=== PATIENT | female | born 1970 | race Caucasian/White ===

== ENCOUNTER → 2017-07-08 | Outpatient (CLI) | payer BC ==
[2015-07-08 23:20] VITALS: BP 130/89
[~2017-07-08] MED LIST: ACET325T9 PO; OTHER; PSEU30TA PO
[2017-07-09 04:09] LABS: ESTRADIOL LEVEL 64.7 pg/mL (.); PROGESTERONE 6.4 ng/mL (.); TESTOSTERONE TOTAL 10 ng/dL (8-48)
[2017-07-11 09:14] LABS: DHEA 125 ng/dL (31-701)
== END | disposition home or self-care (01) ==
LOC: LAB 11:27
PROVIDERS: ATTEND General Practice
DX: E34.8 Other specified endocrine disorders (principal)
CPT/HCPCS: 36415; 82626; 82670; 82679; 84144; 84403

== ENCOUNTER 2018-12-13 05:20 | Emergency (ER) | payer BC ==
[~2018-12-13] VITALS: Ht 149.9 cm; Wt 52.2 kg
--- NOTE | 2018-12-13 05:25 | ED.ADGEN ---
Past History Past Medical History: No Pertinent History, Constipation, GERD, IBS, Other Past Surgical History: No Surgical History, Other Smoking: Non-smoker Alcohol Use: None Drug Use: None Adult General Chief Complaint Chief Complaint "I woke up out of a sound sleep... With severe left flank and lower abdomen pain... It feels like someone stuck a needle or arrow in my back that runs clear down into my groin on the left... ".. ".. It hurts so bad .. I vomited.. I want to vomit..now even... .".," this is almost like my gall bladder pain... " HPI HPI Patient is a 48 year old FEMALE who presents with above hx and complaints nausea, vomiting, severe abdomen and Lt. flank pain. Patient denies history of kidney stones but her sister has had multiple stones nephew has had renal stones dad has had multiple renal stones and grandfather has had multiple kidney stones. Patient denies any intake bad food. Patient denies any diarrhea. She does have a history of IBS and GERD. Patient denies any history of ovarian cyst. Mother has a history of ulcerative or nonspecific colitis. No history of trauma. No history of travel. No history of immunosuppression. Patient does have a history of constipation. Patient states she did have a normal stool yesterday. Review of Systems Review of Systems Constitutional: Denies fever or chills [] Eyes: Denies change in visual acuity, redness, or eye pain [] HENT: Denies nasal congestion or sore throat [] Respiratory: Denies cough or shortness of breath [] Cardiovascular: No additional information not addressed in HPI [] GI: Complaints of left flank abdominal pain, nausea, vomiting, . : Denies dysuria or hematuria [] Musculoskeletal: Complains of left flank back pain Integument: Denies rash or skin lesions [] Neurologic: Denies headache, focal weakness or sensory changes [] Endocrine: Denies polyuria or polydipsia [] All other systems were reviewed and found to be within normal limits, except as documented in this note. Family History Family History Multiple family members with kidney stones Current Medications Current Medications Current Medications Medications (Trade) Dose Ordered Sig/Moises Start Time Stop Time Status Last Admin Dose Admin Famotidine (Pepcid Vial) 20 mg 1X ONCE 12/13/18 06:00 12/13/18 06:01 DC 12/13/18 06:01 20 MG Ketorolac Tromethamine (Toradol 30mg Vial) 30 mg 1X ONCE 12/13/18 06:00 12/13/18 06:01 DC 12/13/18 06:01 30 MG Lactated Ringer's 1,000 ml @ 1,000 mls/hr Q1H 12/13/18 06:00 12/13/18 06:59 DC 12/13/18 06:02 1,000 MLS/HR Levofloxacin (Levaquin) 500 mg 1X ONCE 12/13/18 07:00 12/13/18 07:01 DC 12/13/18 06:53 500 MG Magnesium Hydroxide (Milk Of Magnesia) 2,400 mg 1X ONCE 12/13/18 06:00 12/13/18 06:01 DC 12/13/18 06:01 2,400 MG Morphine Sulfate (Morphine 10mg Syringe) 10 mg 1X ONCE 12/13/18 06:00 12/13/18 06:01 DC 12/13/18 06:01 10 MG Ondansetron HCl (Zofran) 8 mg 1X ONCE 12/13/18 06:00 12/13/18 06:01 DC 12/13/18 06:01 8 MG Tamsulosin HCl (Flomax) 0.4 mg 1X ONCE 12/13/18 08:50 12/13/18 08:39 DC 12/13/18 08:30 0.4 MG See nursing for home medications Allergies Allergies Allergies Coded Allergies Type Severity Reaction Last Updated Verified Penicillins Allergy Intermediate Hives 07/08/15 Yes Sulfa (Sulfonamide Antibiotics) Allergy Intermediate Itching 07/08/15 Yes codeine Adverse Reaction Mild Nausea 07/08/15 Yes Physical Exam Physical Exam Constitutional: in acute distress, non-toxic appearance. [] HENT: Normocephalic, atraumatic, bilateral external ears normal, oropharynx moist, no oral exudates, nose normal. [] Eyes: PERRLA, EOMI, conjunctiva normal, no discharge. [] Neck: Normal range of motion, no tenderness, supple, no stridor. [] Cardiovascular:Heart rate regular rhythm, no murmur [] Lungs & Thorax: Bilateral breath sounds equal at apex on auscultation [] Abdomen: Bowel sounds decreased, soft, left mid abdomen and left flank tenderness, marked tenderness on percussion of left flank ,no masses, no pulsatile masses. [] Declines pelvic exam at this time. Declines rectal exam at this time. Mild distention. Old surgery scars-cholecystectomy. Skin: Warm, diaphoretic,, no erythema, no rash. [] Back: No tenderness, left flank CVA tenderness. [] Extremities: No tenderness, no cyanosis, no clubbing, ROM intact, no edema. [] No psoas sign. Neurologic: Alert and oriented X 3, normal motor function, normal sensory function, no focal deficits noted. [] Psychologic: Affect anxious, judgement normal, mood normal. [] Current Patient Data Vital Signs Vital Signs Date Time Temp Pulse Resp B/P (MAP) Pulse Ox O2 Delivery O2 Flow Rate FiO2 12/13/18 06:34 69 18 139/82 (101) 98 Room Air 12/13/18 05:36 97.3 Lab Results Laboratory Tests Test 12/13/18 05:25 12/13/18 06:00 Urine Collection Type Unknown Urine Color Yellow Urine Clarity Clear Urine pH 7.0 Urine Specific [place] 1.020 Urine Protein Neg (NEG-TRACE) Urine Glucose (UA) Neg mg/dL (NEG) Urine Ketones (Stick) Trace mg/dL (NEG) Urine Blood Mod (NEG) Urine Nitrite Neg (NEG) Urine Bilirubin Neg (NEG) Urine Urobilinogen Dipstick 1 mg/dL (0.2 mg/dL) Urine Leukocyte Esterase Neg (NEG) Urine RBC 11-20 /HPF (0-2) Urine WBC 1-4 /HPF (0-4) Urine Squamous Epithelial Cells Occ /LPF Urine Transitional Epithelial Cells Occ /LPF Urine Amorphous Sediment Present /HPF Urine Bacteria Few /HPF (0-FEW) Urine Mucus Slight /LPF Urine Opiates Screen Neg (NEG) Urine Methadone Screen Neg (NEG) Urine Barbiturates Neg (NEG) Urine Phencyclidine Screen Neg (NEG) Urine Amphetamine/Methamphetamine Neg (NEG) Urine Benzodiazepines Screen Neg (NEG) Urine Cocaine Screen Neg (NEG) Urine Cannabinoids Screen Neg (NEG) Urine Ethyl Alcohol Neg (NEG) White Blood Count 14.4 x10^3/uL (4.0-11.0) H Red Blood Count 4.46 x10^6/uL (3.50-5.40) Hemoglobin 13.9 g/dL (12.0-15.5) Hematocrit 42.3 % (36.0-47.0) Mean Corpuscular Volume 95 fL (79-100) Mean Corpuscular Hemoglobin 31 pg (25-35) Mean Corpuscular Hemoglobin Concent 33 g/dL (31-37) Red Cell Distribution Width 12.6 % (11.5-14.5) Platelet Count 252 x10^3/uL (140-400) Neutrophils (%) (Auto) 80 % (31-73) H Lymphocytes (%) (Auto) 14 % (24-48) L Monocytes (%) (Auto) 5 % (0-9) Eosinophils (%) (Auto) 1 % (0-3) Basophils (%) (Auto) 0 % (0-3) Neutrophils # (Auto) 11.5 x10^3uL (1.8-7.7) H Lymphocytes # (Auto) 2.1 x10^3/uL (1.0-4.8) Monocytes # (Auto) 0.6 x10^3/uL (0.0-1.1) Eosinophils # (Auto) 0.2 x10^3/uL (0.0-0.7) Basophils # (Auto) 0.0 x10^3/uL (0.0-0.2) Prothrombin Time 9.5 SEC (9.4-11.4) Prothrombin Time INR 0.9 (0.9-1.1) Activated Partial Thromboplast Time 23 SEC (23-33) Sodium Level 141 mmol/L (136-145) Potassium Level 3.4 mmol/L (3.5-5.1) L Chloride Level 106 mmol/L (98-107) Carbon Dioxide Level 22 mmol/L (21-32) Anion Gap 13 (6-14) Blood Urea Nitrogen 17 mg/dL (7-20) Creatinine 1.1 mg/dL (0.6-1.0) H Estimated GFR (Cockcroft-Gault) 52.6 Glucose Level 158 mg/dL (70-99) H Calcium Level 8.4 mg/dL (8.5-10.1) L Total Bilirubin 0.4 mg/dL (0.2-1.0) Direct Bilirubin 0.1 mg/dL (0.0-0.2) Aspartate Amino Transferase (AST) 15 U/L (15-37) Alanine Aminotransferase (ALT) 14 U/L (14-59) Alkaline Phosphatase 62 U/L (46-116) Total Protein 6.3 g/dL (6.4-8.2) L Albumin 3.4 g/dL (3.4-5.0) Amylase Level 38 U/L (25-115) Lipase 100 U/L (73-393) EKG EKG [] Radiology/Procedures Radiology/[place] [address] IMAGING REPORT Signed PATIENT: RENETTA FATIMA ACCOUNT: [id number] : 1970 LOCATION: ER AGE: 48 SEX: F EXAM STATUS: REG ER ORD. PHYSICIAN: WHIT GILES MD REASON: ABDOMEN PAIN PROCEDURE: ACUTE ABDOMEN SERIES ACUTE ABDOMEN SERIES INDICATION: Abdominal pain. COMPARISON STUDY: None. FINDINGS: Lungs: Normal lung volume. No pulmonary mass or consolidation. The tracheobronchial tree and hilar structures are normal. Pleura: No pleural effusion or pneumothorax. Heart and Mediastinum: The cardiomediastinal silhouette is normal. The great vessels of the thorax are normal. Abdomen: Nonobstructive bowel gas pattern. No free air. Moderate colonic stool. Bones and Soft Tissues: The bones and soft tissues are within normal limits. IMPRESSION: Nonobstructive bowel gas pattern. Moderate colonic stool. No focal airspace disease. Electronically signed by: Marybeth Andersen MD (12/13/2018 7:57 AM) [facility] [place] DICTATED AND SIGNED BY: MARYBETH ANDERSEN MD DATE: 12/13/18 0757 CC: DENVER HUNTER DO; WHIT GILES MD ~ [] IMAGING REPORT Signed PATIENT: RENETTA FATIMA ACCOUNT: [id number] : 1970 LOCATION: ER AGE: 48 SEX: F EXAM STATUS: REG ER ORD. PHYSICIAN: WHIT GILES MD REASON: Lt. lower abd. and flank pain, hematuria, PROCEDURE: CT ABDOMEN PELVIS WO CONTRAST CT ABDOMEN PELVIS WO CONTRAST INDICATION: Left abdominal and flank pain, hematuria EXAM: Noncontrast CT of the abdomen and pelvis. Coronal and sagittal reformatted images were performed. PQRS compliance statement: One or more of the following individualized dose reduction techniques were utilized for this examination: 1. Automated exposure control 2. Adjustment of the mA and/or kV according to patient size 3. Use of iterative reconstruction technique COMPARISON: None FINDINGS: No free air, free fluid, or fluid collection. Lower chest: The visualized lower lungs are aerated. No pleural or pericardial effusion. ABDOMEN: Liver: The noncontrast liver is homogeneous in attenuation. Gallbladder and biliary: Cholecystectomy. Mildly prominent common bile duct, likely due to postcholecystectomy state. Spleen: Normal spleen. Pancreas: The noncontrast pancreas is homogeneous in attenuation without peripancreatic inflammatory changes. Adrenal glands: Normal adrenal glands. Kidneys and ureters: Mild left hydroureteronephrosis. There are 2 small calcifications along the course of the left distal ureter measuring 5 x 4 mm and 5 x 2 mm. Several additional bilateral punctate nonobstructive renal calculi measuring 1 to 3 mm. GI tract: The stomach is decompressed and poorly evaluated. Normal caliber small bowel and colon. Vascular structures: Normal caliber abdominal aorta. Lymph nodes: No lymphadenopathy in the abdomen or pelvis. PELVIS: Genitourinary system: Bladder is decompressed. Uterus is present. SKELETAL STRUCTURES AND SOFT TISSUES: No fracture or destructive lesion in the visualized skeleton. IMPRESSION: Mild left hydroureteronephrosis. There are 2 small calcifications along the course of the left distal ureter, measuring 5 x 4 mm and 5 x 2 mm. Likely one or possibly both of these calculi are within the ureter, although it is difficult to determine as the ureter is not well visualized in this region and there are numerous pelvic phleboliths. There are multiple additional punctate nonobstructive bilateral renal calculi measuring 1 to 3 mm. Electronically signed by: Marybeth Andersen MD (12/13/2018 7:28 AM) [facility] DICTATED AND SIGNED BY: MARYBETH ANDERSEN MD DATE: 12/13/18 0728 CC: DENVER HUNTER DO; WHIT GILES MD ~ Course & Med Decision Making Course & Med Decision Making Pertinent Labs and Imaging studies reviewed. (See chart for details) Patient to push fluids. Patient to save stone if passed. Patient take Levaquin 500 mg daily for 5 days. Patient to take Zofran as needed 8 mg up 4 times a day for nausea and vomiting. Patient may take Tamsulosin 0.4 mg daily till passage of stone.. Patient warned that this drug may cause dizziness and hypotension. Patient to follow up urine cultures. Patient to follow-up primary care. Patient follow-up urology. Patient return of any concerns. Recommend following at [facility] if unable to pass stone. She given a list of urologist. Recommended patient get a urologist since multiple family members have had recurrent stones and is likely she may end up with the same problem. [] Final Impression Final Impression 1. Left flank and mid abdomen pain 2. Nausea and vomiting 3. Leukocytosis 14.9 4. Elevated glucose 158 5. Elevated creatinine 1.1 6. Hematuria 7. Kidney stones- Lt. with mild hydronephrosis 8. UTI [] Dragon Disclaimer Dragon Disclaimer This electronic medical record was generated, in whole or in part, using a voice recognition dictation system. Dragon Disclaimer This chart was dictated in whole or in part using Voice Recognition software in a busy, high-work load, and often noisy Emergency Department environment. It may contain unintended and wholly unrecognized errors or omissions. Dragon Disclaimer This chart was dictated in whole or in part using Voice Recognition software in a busy, high-work load, and often noisy Emergency Department environment. It may contain unintended and wholly unrecognized errors or omissions. Dragon Disclaimer This chart was dictated in whole or in part using Voice Recognition software in a busy, high-work load, and often noisy Emergency Department environment. It may contain unintended and wholly unrecognized errors or omissions. WHIT GILES MD Dec 13, 2018 05:25
[2018-12-13] MEDS ORDERED: MORPHINE SULFATE 10 MG/ML SYRINGE. SQ ONE (06:00)
[2018-12-13] MEDS ORDERED: MAGNESIUM HYDROXIDE 2,400 MG/30 ML ORAL.SUSP. PO ONE (06:00)
[2018-12-13] MEDS ORDERED: FAMOTIDINE 20 MG/2 ML VIAL IVP ONE (06:00)
[2018-12-13] MEDS ORDERED: KETOROLAC 30 MG/ML VIAL. IVP ONE (06:00)
[2018-12-13] MEDS ORDERED: ONDANSETRON PF 4 MG/2 ML VIAL. IVP ONE (06:00)
[2018-12-13] MEDS ORDERED: IV RINGERS SOLUTION,LACTATED 1,000 ML IV SCH (06:00)
[2018-12-13 06:18] LABS: BARBITURATES NEG (NEG); BENZODIAZEPINES NEG (NEG); CANNABINOIDS NEG (NEG); COCAINE NEG (NEG); METHADONE NEG (NEG); OPIATES NEG (NEG); PHENCYCLIDINE NEG (NEG)
[2018-12-13 06:21] LABS: BASO % 0 % (0-3); EOS # 0.2 x10^3/uL (0.0-0.7); EOS % 1 % (0-3); HEMATOCRIT 42.3 % (36.0-47.0); HEMOGLOBIN 13.9 g/dL (12.0-15.5); LYMPH # 2.1 x10^3/uL (1.0-4.8); LYMPH % 14 % (24-48); MEAN CORPUSCULAR HEMOGLOBIN 31 pg (25-35); MEAN CORPUSCULAR HGB CONC 33 g/dL (31-37); MEAN CORPUSCULAR VOLUME 95 fL (79-100); MONO # 0.6 x10^3/uL (0.0-1.1); MONO % 5 % (0-9); NEUT # 11.5 x10^3uL (1.8-7.7); NEUT % 80 % (31-73); PLATELET COUNT 252 x10^3/uL (140-400); RED BLOOD COUNT 4.46 x10^6/uL (3.50-5.40); RED CELL DISTRIBUTION WIDTH 12.6 % (11.5-14.5); WHITE BLOOD COUNT 14.4 x10^3/uL (4.0-11.0)
[2018-12-13 06:22] LABS: AMPHETAMINE/METHAMPHETAMINE NEG (NEG)
[2018-12-13 06:25] LABS: BILIRUBIN,URINE NEG (NEG); CLARITY,URINE CLEAR; COLOR,URINE YELLOW; GLUCOSE,URINE NEG (NEG)
[2018-12-13 06:26] LABS: AMORPHOUS SEDIMENT,UR PRESENT /HPF; BACTERIA,URINE FEW /HPF (0-FEW); NITRITE,URINE NEG (NEG); SQUAMOUS EPITHELIAL CELL,UR OCC /LPF; UROBILINOGEN,URINE 1 mg/dL (0.2 mg/dL)
[2018-12-13 06:33] LABS: ALBUMIN 3.4 g/dL (3.4-5.0); CALCIUM 8.4 mg/dL (8.5-10.1); CREATININE 1.1 mg/dL (0.6-1.0); DIRECT BILIRUBIN 0.1 mg/dL (0.0-0.2); GFR 52.6; POTASSIUM 3.4 mmol/L (3.5-5.1); TOTAL BILIRUBIN 0.4 mg/dL (0.2-1.0); TOTAL PROTEIN 6.3 g/dL (6.4-8.2)
[2018-12-13] MEDS ORDERED: levoFLOXacin 500 MG TABLET PO ONE (07:00)
--- NOTE | 2018-12-13 07:31 | RAD ---
CT ABDOMEN PELVIS WO CONTRAST INDICATION: Left abdominal and flank pain, hematuria EXAM: Noncontrast CT of the abdomen and pelvis. Coronal and sagittal reformatted images were performed. PQRS compliance statement: One or more of the following individualized dose reduction techniques were utilized for this examination: 1. Automated exposure control 2. Adjustment of the mA and/or kV according to patient size 3. Use of iterative reconstruction technique COMPARISON: None FINDINGS: No free air, free fluid, or fluid collection. Lower chest: The visualized lower lungs are aerated. No pleural or pericardial effusion. ABDOMEN: Liver: The noncontrast liver is homogeneous in attenuation. Gallbladder and biliary: Cholecystectomy. Mildly prominent common bile duct, likely due to postcholecystectomy state. Spleen: Normal spleen. Pancreas: The noncontrast pancreas is homogeneous in attenuation without peripancreatic inflammatory changes. Adrenal glands: Normal adrenal glands. Kidneys and ureters: Mild left hydroureteronephrosis. There are 2 small calcifications along the course of the left distal ureter measuring 5 x 4 mm and 5 x 2 mm. Several additional bilateral punctate nonobstructive renal calculi measuring 1 to 3 mm. GI tract: The stomach is decompressed and poorly evaluated. Normal caliber small bowel and colon. Vascular structures: Normal caliber abdominal aorta. Lymph nodes: No lymphadenopathy in the abdomen or pelvis. PELVIS: Genitourinary system: Bladder is decompressed. Uterus is present. SKELETAL STRUCTURES AND SOFT TISSUES: No fracture or destructive lesion in the visualized skeleton. IMPRESSION: Mild left hydroureteronephrosis. There are 2 small calcifications along the course of the left distal ureter, measuring 5 x 4 mm and 5 x 2 mm. Likely one or possibly both of these calculi are within the ureter, although it is difficult to determine as the ureter is not well visualized in this region and there are numerous pelvic phleboliths. There are multiple additional punctate nonobstructive bilateral renal calculi measuring 1 to 3 mm. Electronically signed by: Wilfrid Andersen MD (12/13/2018 7:28 AM) [facility]
--- NOTE | 2018-12-13 08:00 | RAD ---
ACUTE ABDOMEN SERIES INDICATION: Abdominal pain. COMPARISON STUDY: None. FINDINGS: Lungs: Normal lung volume. No pulmonary mass or consolidation. The tracheobronchial tree and hilar structures are normal. Pleura: No pleural effusion or pneumothorax. Heart and Mediastinum: The cardiomediastinal silhouette is normal. The great vessels of the thorax are normal. Abdomen: Nonobstructive bowel gas pattern. No free air. Moderate colonic stool. Bones and Soft Tissues: The bones and soft tissues are within normal limits. IMPRESSION: Nonobstructive bowel gas pattern. Moderate colonic stool. No focal airspace disease. Electronically signed by: Wilfrid Andersen MD (12/13/2018 7:57 AM) [facility]
[2018-12-13] MEDS ORDERED: LEVO500T59 PO (08:13)
[2018-12-13] MEDS ORDERED: HYDR-1179 PO (08:13)
[2018-12-13] MEDS ORDERED: ONDA8TAB9 PO (08:13)
[2018-12-13] MEDS ORDERED: TAMS0.4C97 PO (08:16)
[2018-12-13 08:34] VITALS: BP 120/88
[2018-12-13] MEDS ORDERED: TAMSULOSIN 0.4 MG CAP.ER.24H. PO ONE (08:50)
== END 2018-12-13 08:38 | disposition home or self-care (01) ==
LOC: ER 05:20
DX: N39.0 Urinary tract infection, site not specified (principal); D72.829 Elevated white blood cell count, unspecified; R31.9 Hematuria, unspecified; N13.2 Hydronephrosis with renal and ureteral calculous obstruction; R11.2 Nausea with vomiting, unspecified; R73.9 Hyperglycemia, unspecified; R79.82 Elevated C-reactive protein (CRP); K21.9 Gastro-esophageal reflux disease without esophagitis; K58.9 Irritable bowel syndrome, unspecified; Z88.0 Allergy status to penicillin; Z88.2 Allergy status to sulfonamides; Z88.5 Allergy status to narcotic agent
CPT/HCPCS: 36415; 74022; 74176; 80048; 80076; 80307; 81001; 82150; 83690; 85025; 85610; 85730; 96361; 96372; 96374; 96375; 99285; J1885; J2270; J2405; J3490; J7120

== ENCOUNTER → 2018-12-18 | Outpatient (CLI) | payer BC ==
[2018-12-13 08:34] VITALS: BP 120/88
[~2018-12-18] MED LIST changes: +HYDR-1179 PO; +LEVO500T59 PO; +ONDA8TAB9 PO; +TAMS0.4C97 PO
[2018-12-22 22:11] LABS: ANA INTERP Negative (.)
== END | disposition home or self-care (01) ==
LOC: LAB 15:35
PROVIDERS: ATTEND Physician Assistant
DX: L71.9 Rosacea, unspecified (principal)
CPT/HCPCS: 36415; 86038

== ENCOUNTER → 2019-01-11 | Outpatient (CLI) | payer BC ==
[2018-12-13 08:34] VITALS: BP 120/88
--- NOTE | 2019-01-11 12:45 | RAD ---
Renal ultrasound 01/11/2019 INDICATION: Left ureteral stone with hydronephrosis seen on CT 12/13/2018Patient reports she passed a stone this morning. COMPARISON STUDY: CT of the abdomen and pelvis 12/13/2018 Discussion: Ultrasound evaluation of the kidneys was performed. Static images are submitted to PACS. Right kidney measures 10.8 x 5.2 x 4.0 cm. Right kidney is normal in appearance without evidence of nephrolithiasis or hydronephrosis. The left kidney measures 10.1 x 4.7 x 5.0 cm. Minimal prominence of the left renal pelvis is seen by ultrasound. No definitive nephrolithiasis is identified. The bladder is predominantly decompressed but otherwise grossly unremarkable. The previously seen small nonobstructive kidney stones involving both kidneys are sonographically occult. IMPRESSION: Minimal left-sided hydronephrosis. Otherwise unremarkable sonographic appearance of the kidneys. Electronically signed by: Markus Michelle MD (01/11/2019 12:42 PM) [facility]
== END | disposition home or self-care (01) ==
LOC: US 10:55
PROVIDERS: ATTEND Physician Assistant
DX: N13.39 Other hydronephrosis (principal)
CPT/HCPCS: 76770

== ENCOUNTER → 2019-04-06 | Outpatient (CLI) | payer BC ==
--- NOTE | 2019-04-07 09:29 | RAD ---
Examination: 1. Right diagnostic mammogram. 2. Targeted right breast ultrasound. INDICATION: 49-year-old woman presenting for imaging evaluation of a palpable lump in the right breast notice the past few weeks. She has been on hormone replacement for the past 4 years. COMPARISON: Bilateral mammograms of 09/18/2017 and 09/16/2018. TECHNIQUE: CC and MLO views of the right breast with 2-D technique were obtained with a BB marker identifying the area of palpable concern as reported by the patient. Thereafter, targeted ultrasound of the patient's reported area of palpable concern was also performed. FINDINGS: Right diagnostic mammogram shows heterogeneously dense breast parenchyma with no dominant mammographic mass or suspicious calcifications architectural distortion. There is no mammographic correlate to the area of reported palpable concern as indicated by BB marker in the lateral middle third right breast. Targeted ultrasound of this area identifies at the 8:00 position 7 cm from the nipple a 5 mm parallel orientation hypoechoic mass with thin linear internal echoes and microlobulated margins. No internal vascularity. Although this could represent a cluster of microcysts, it is sonographically suspicious and recommended for ultrasound-guided core needle biopsy. Targeted ultrasound of the right axilla revealed no adenopathy. IMPRESSION: Suspicious 5 mm palpable nodule in the lower-outer right breast at the 8:00 position 7 cm from nipple. Ultrasound-guided core needle biopsy is recommended. The ambulatory technologist communicated my findings and recommendation to the patient on my behalf at my request prior to her discharge from the imaging suite. I also discussed these results with [place] nurse practitioner for Dr. Harjinder Qureshi by telephone at approximately 3:30 PM on 04/06/2019. It is my understanding he will arrange for scheduling follow-up after consulting with the patient. BI-RADS Category 4 Findings suspicious for malignancy Biopsy recommended BI-RADS 4 -- suspicious abnormality, biopsy recommended
== END | disposition home or self-care (01) ==
LOC: MAMMO 08:11
PROVIDERS: ATTEND Family Medicine
DX: R92.2 Inconclusive mammogram (principal); N63.13 Unspecified lump in the right breast, lower outer quadrant
CPT/HCPCS: 76641; 77065

== ENCOUNTER → 2019-11-04 | Outpatient (CLI) | payer BC ==
[2019-11-04 17:07] LABS: DHEA SO4 56.9 ug/dL (41.2-243.7); ESTRADIOL LEVEL 39.9 pg/mL (.); PROGESTERONE 0.9 ng/mL (.); TESTOSTERONE TOTAL 55 ng/dL (3-41)
== END | disposition home or self-care (01) ==
LOC: LAB 07:14
PROVIDERS: ATTEND Nurse Practitioner Women's Health
DX: Z79.890 Hormone replacement therapy (principal)
CPT/HCPCS: 36415; 82627; 82670; 84144; 84403